=== PATIENT | female | born 1960 | race Caucasian/White ===

== ENCOUNTER → 2016-06-11 | Outpatient (CLI) | payer MEDICARE ==
[~2016-06-11] MED LIST: CYMBALTA60 MG PO; LOTENSIN TAB 1010 MG PO; LOVENOX SY40 MG/0.4 SQ; METHADONE PO; NEURONTIN 300300 MG PO; PERCOCET 5-3251 EACH PO; PHENERGAN 12.12.5 M1 PO; PLAQUENIL 200200 MG PO; PREDNISONE20 MG PO; STOOL SOFTENER250 MG PO
== END ==
LOC: RAD 15:18
DX: S69.90XA Unspecified injury of unspecified wrist, hand and finger(s), initial encounter (principal); Z88.0 Allergy status to penicillin; Z88.2 Allergy status to sulfonamides; Z88.8 Allergy status to other drugs, medicaments and biological substances; Z88.1 Allergy status to other antibiotic agents; Z91.040 Latex allergy status
CPT/HCPCS: 73130

== ENCOUNTER → 2016-06-18 | Outpatient (CLI) | payer MEDICARE ==
[2016-06-18 15:43] LABS: HEMOGLOBIN 11.7 gm/dl (12.3-15.3); RED BLOOD COUNT 3.94 M/UL (4.00-5.10); WHITE BLOOD COUNT 8.5 K/UL (4.5-11.0)
[2016-06-18 16:13] LABS: BUN/CREATININE RATIO 21 (0-10)
== END ==
LOC: LAB 15:15
PROVIDERS: Nurse Practitioner Family
DX: R19.7 Diarrhea, unspecified (principal); R10.816 Epigastric abdominal tenderness
CPT/HCPCS: 80053; 82150; 83690; 85025

== ENCOUNTER 2016-07-15 15:09 | Emergency (ER) | payer MEDICARE ==
[~2016-07-15 15:09] MED LIST changes: -LOVENOX SY40 MG/0.4 SQ; -METHADONE PO; -NEURONTIN 300300 MG PO; -PERCOCET 5-3251 EACH PO; -PHENERGAN 12.12.5 M1 PO; -PLAQUENIL 200200 MG PO; -PREDNISONE20 MG PO; -STOOL SOFTENER250 MG PO
== END 2016-07-15 17:25 | disposition home or self-care (01) ==
LOC: ER1 15:09
DX: S52.572A Other intraarticular fracture of lower end of left radius, initial encounter for closed fracture (principal); S52.615A Nondisplaced fracture of left ulna styloid process, initial encounter for closed fracture; Z88.0 Allergy status to penicillin; Z88.1 Allergy status to other antibiotic agents; Z88.2 Allergy status to sulfonamides; W18.40XA Slipping, tripping and stumbling without falling, unspecified, initial encounter; Y92.009 Unspecified place in unspecified non-institutional (private) residence as the place of occurrence of the external cause
CPT/HCPCS: 29125; 73080; 73090; 73110; 73130; 96372; 99283; J2270

== ENCOUNTER → 2016-07-19 | Outpatient (CLI) | payer MEDICARE ==
[~2016-07-19] MED LIST changes: +LOVENOX SY40 MG/0.4 SQ; +METHADONE PO; +NEURONTIN 300300 MG PO; +PERCOCET 5-3251 EACH PO; +PHENERGAN 12.12.5 M1 PO; +PLAQUENIL 200200 MG PO; +PREDNISONE20 MG PO; +STOOL SOFTENER250 MG PO
[2016-07-19 12:41] LABS: BUN/CREATININE RATIO 20 (0-10)
== END ==
LOC: LAB 11:01 → OPSV2 11:01
PROVIDERS: Orthopaedic Surgery
DX: Z01.812 Encounter for preprocedural laboratory examination (principal); Z01.810 Encounter for preprocedural cardiovascular examination; Z01.818 Encounter for other preprocedural examination; S62.102A Fracture of unspecified carpal bone, left wrist, initial encounter for closed fracture; G56.02 Carpal tunnel syndrome, left upper limb; Z88.0 Allergy status to penicillin; Z88.1 Allergy status to other antibiotic agents; Z88.2 Allergy status to sulfonamides; Z91.040 Latex allergy status
CPT/HCPCS: 36415; 71020; 80048; 93005

== ENCOUNTER 2016-07-20 08:53 | Observation (INO) | payer MEDICARE ==
[~2016-07-20] VITALS: Ht 157.5 cm; Wt 70.3 kg
[~2016-07-20 08:53] MED LIST changes: -LOVENOX SY40 MG/0.4 SQ; -METHADONE PO; -NEURONTIN 300300 MG PO; -PERCOCET 5-3251 EACH PO; -PHENERGAN 12.12.5 M1 PO; -PLAQUENIL 200200 MG PO; -PREDNISONE20 MG PO; -STOOL SOFTENER250 MG PO
[2016-07-20] MEDS ORDERED: METHADONE PO (09:34)
[2016-07-20] MEDS ORDERED: PLAQUENIL 200200 MG PO (09:34)
[2016-07-20] MEDS ORDERED: CYMBALTA60 MG PO (09:35)
[2016-07-20] MEDS ORDERED: PREDNISONE20 MG PO (09:36)
[2016-07-20] MEDS ORDERED: NEURONTIN 300300 MG PO (18:44)
[2016-07-21] MEDS ORDERED: PERCOCET 5-3251 EACH PO (13:03)
[2016-07-21] MEDS ORDERED: STOOL SOFTENER250 MG PO (13:06)
[2016-07-21] MEDS ORDERED: PHENERGAN 12.12.5 M1 PO (13:07)
[2016-07-21] MEDS ORDERED: LOVENOX SY40 MG/0.4 SQ (13:07)
== END 2016-07-21 15:35 | disposition home or self-care (01) ==
LOC: M/S 08:53 → OR 08:53 → M/S 09:00 → OR 10:15 → M/S 17:59 → OR 17:59 → M/S 07-21 15:35
PROVIDERS: ADMIT Orthopaedic Surgery
PROC: 0PSJ04Z Reposition Left Radius with Internal Fixation Device, Open Approach (ICD-10-PCS; principal; 2016-07-20 10:15)
PROC: 01N50ZZ Release Median Nerve, Open Approach (ICD-10-PCS; 2016-07-20 10:15)
DX: S52.572A Other intraarticular fracture of lower end of left radius, initial encounter for closed fracture (principal); G56.02 Carpal tunnel syndrome, left upper limb; M21.242 Flexion deformity, left finger joints; G89.29 Other chronic pain; M19.90 Unspecified osteoarthritis, unspecified site; Z90.13 Acquired absence of bilateral breasts and nipples; Z98.84 Bariatric surgery status; Z79.891 Long term (current) use of opiate analgesic; Z79.899 Other long term (current) drug therapy; Z88.0 Allergy status to penicillin; Z91.040 Latex allergy status; Z88.1 Allergy status to other antibiotic agents; Z86.718 Personal history of other venous thrombosis and embolism; Z90.49 Acquired absence of other specified parts of digestive tract; W01.0XXA Fall on same level from slipping, tripping and stumbling without subsequent striking against object, initial encounter
CPT/HCPCS: 73100; 73110; 76000; C1713; G0378; J1100; J2250; J2270; J2405; J2550; J2710; J3010; J7120

== ENCOUNTER → 2016-08-17 | Outpatient (CLI) | payer MEDICARE ==
[~2016-08-17] MED LIST changes: +LOVENOX SY40 MG/0.4 SQ; +METHADONE PO; +NEURONTIN 300300 MG PO; +PERCOCET 5-3251 EACH PO; +PHENERGAN 12.12.5 M1 PO; +PLAQUENIL 200200 MG PO; +PREDNISONE20 MG PO; +STOOL SOFTENER250 MG PO
== END ==
LOC: KOH-I 14:30
DX: S62.102D Fracture of unspecified carpal bone, left wrist, subsequent encounter for fracture with routine healing (principal); Z96.632 Presence of left artificial wrist joint; S52.612D Displaced fracture of left ulna styloid process, subsequent encounter for closed fracture with routine healing; M79.89 Other specified soft tissue disorders
CPT/HCPCS: 73200